=== PATIENT | female | born 1990 | race American Indian/Alaskan Native ===

== ENCOUNTER 2020-06-23 10:26 | Emergency (ER) | payer SELFPAY ==
--- NOTE | 2020-06-23 11:24 | XRay Report ---
Fingers 3 views INDICATION: Finger pain following injury. IMPRESSION: No acute fracture or subluxation of the thumb is identified. Mild swelling overlying the interphalangeal joint of the thumb dorsally. Signer Name: Wilfredo Harper MD Signed: 06/23/2020 11:20 AM Workstation Name: [id number]
[2020-06-23] MEDS ORDERED: DIPHtheria,PERTUSSIS(ACELL),TETANUS VACCINE/PF 0.5 ML VIAL IM ONE (12:29)
[2020-06-23] MEDS ORDERED: HYDROcodone/ACETAMINOPHEN 5-325 MG TAB PO ONE (12:29)
--- NOTE | 2020-06-23 12:46 | Emergency Department Report ---
ED Upper Extremity Inj HPI - General Chief Complaint: Extremity Injury, Upper Stated Complaint: RT THUMB SWELLING Time Seen by Provider: 06/23/20 11:47 Source: patient Mode of arrival: Ambulatory Limitations: No Limitations - History of Present Illness Initial Comments: Patient is a 29-year-old female presents emergency room with complaints of a right thumb injury that occurred just prior to arrival. She states that she accidentally slammed her right thumb into the car door. She states that she has associated right thumb pain and swelling. She denies any other injury. She denies any numbness or weakness. She is right-hand dominant. She denies ever injuring this thumb in the past. She is unsure of her last tetanus immunization. She denies any past medical history. No allergies to medications. Last menstrual cycle June 11. - Related Data Previous Rx's Medication Instructions Recorded Last Taken Type Naproxen [EC-Naprosyn] 500 mg PO BID PRN #14 tablet. 06/23/20 Unknown Rx Allergies Allergy/AdvReac Type Severity Reaction Status Date / Time seafood Allergy Anaphylaxis Uncoded 06/23/20 10:34 ED Review of Systems ROS: Stated complaint: RT THUMB SWELLING Other details as noted in HPI Comment: All other systems reviewed and negative ED Past Medical Hx - Past Medical History Previous Medical History?: No - Surgical History Past Surgical History?: No - Social History Smoking Status: Current Every Day Smoker Substance Use Type: Alcohol, Marijuana - Medications Home Medications: Home Medications Medication Instructions Recorded Confirmed Last Taken Type Naproxen [EC-Naprosyn] 500 mg PO BID PRN #14 tablet. 06/23/20 Unknown Rx ED Physical Exam - General Limitations: No Limitations General appearance: alert, in no apparent distress - Head Head exam: Present: atraumatic, normocephalic - Eye Eye exam: Present: normal appearance - ENT ENT exam: Present: mucous membranes moist - Extremities Exam Extremities exam: Present: other (ttp and mild edema present to the right mid thumb and distal thumb, there is a small 1 cm abrasion, no active bleeding, FROM of the right wrist, hand, and digits, no snuffbox ttp, no deformity, neurovascularly intact) - Neurological Exam Neurological exam: Present: alert, oriented X3 - Psychiatric Psychiatric exam: Present: normal affect, normal mood - Skin Skin exam: Present: warm, dry ED Course Vital Signs 06/23/20 06/23/20 06/23/20 10:29 12:38 13:20 Temperature 98.6 F 98.1 F Pulse Rate 93 H 73 Respiratory 18 18 16 Rate Blood Pressure 117/80 Blood Pressure 116/73 [Left] O2 Sat by Pulse 100 100 Oximetry ED Medical Decision Making - Radiology Data Radiology results: report reviewed Fingers 3 views INDICATION: Finger pain following injury. IMPRESSION: No acute fracture or subluxation of the thumb is identified. Mild swelling overlying the interphalangeal joint of the thumb dorsally. Signer Name: Wilfredo Harper MD Signed: 06/23/2020 11:20 AM Workstation Name: [id number] Transcribed By: BC Dictated By: Wilfredo Harper MD Electronically Authenticated By: Wilfredo Harper MD Signed Date/Time: 06/23/201119 DD/ 18 TD/TT: - Medical Decision Making Patient is a 29-year-old female presents emergency room with complaints of a right thumb injury that occurred just prior to arrival. She states that she accidentally slammed her right thumb into the car door. She states that she has associated right thumb pain and swelling. She denies any other injury. She denies any numbness or weakness. She is right-hand dominant. She denies ever injuring this thumb in the past. She is unsure of her last tetanus immunization. She denies any past medical history. No allergies to medications. Last menstrual cycle June 11. Vitals are normal. On exam: ttp and mild edema present to the right mid thumb and distal thumb, there is a small 1 cm abrasion, no active bleeding, FROM of the right wrist, hand, and digits, no snuffbox ttp, no deformity, neurovascularly intact. XR right thumb: IMPRESSION: No acute fracture or subluxation of the thumb is identified. Mild swelling overlying the interphalangeal joint of the thumb dorsally. Patient given Tdap while in the emergency department. Patient given pain medication whi le in the emergency department as she did not drive and symptoms improved. Wound care performed by nurse and patient placed in thumb splint by nurse, patient remained neurovascularly intact. Patient given prescription for naproxen. Advised patient Please take medication as prescribed as needed. Please keep area clean, dry, covered. Wash with antibacterial soap and water twice a day and pat dry. Use a Neosporin or triple antibiotic ointment. Follow-up with a primary care doctor. Follow-up with orthopedic doctor. Return to emergency room for any new or worsening symptoms. - Differential Diagnosis Strain, sprain, fracture, dislocation, abrasion, contusion Critical care attestation.: If time is entered above; I have spent that time in minutes in the direct care of this critically ill patient, excluding procedure time. ED Disposition Clinical Impression: Injury of right thumb Qualifiers: Encounter type: initial encounter Qualified Code(s): S69.91XA - Unspecified injury of right wrist, hand and finger(s), initial encounter Abrasion of right thumb Qualifiers: Encounter type: initial encounter Qualified Code(s): S60.311A - Abrasion of right thumb, initial encounter Disposition: TO HOME OR SELFCARE Is pt being admited?: No Does the pt Need Aspirin: No Condition: Stable Instructions: Diphtheria/Acellular Pertussis/Tetanus Booster Vaccine (Tdap) (Injection), Finger Sprain (ED), Abrasion (ED) Additional Instructions: Please take medication as prescribed as needed. Please keep area clean, dry, covered. Wash with antibacterial soap and water twice a day and pat dry. Use a Neosporin or triple antibiotic ointment. Follow-up with a primary care doctor. Follow-up with orthopedic doctor. Return to emergency room for any new or worsening symptoms. Prescriptions: Naproxen [EC-Naprosyn] 500 mg PO BID PRN #14 tablet.dr CAMARA Reason: pain Referrals: PRIMARY MD EML [Primary Care Provider] - 3-5 Days HEIDY LEVIN MD [Staff Physician] - 3-5 Days [facility] [Provider Group] - 3-5 Days KEV MACDONALD MD [Staff Physician] - 3-5 Days [facility] [Provider Group] - 3-5 Days Time of Disposition: 12:45 Print Language: UPPER SORBIAN
[2020-06-23 13:21] VITALS: BP 116/73
== END 2020-06-23 13:22 | disposition home or self-care (01) ==
LOC: ED 10:26
DX: S69.91XA Unspecified injury of right wrist, hand and finger(s), initial encounter (principal); S60.311A Abrasion of right thumb, initial encounter; F17.200 Nicotine dependence, unspecified, uncomplicated; F12.90 Cannabis use, unspecified, uncomplicated; Z79.899 Other long term (current) drug therapy; Z91.013 Allergy to seafood; X58.XXXA Exposure to other specified factors, initial encounter; Y93.89 Activity, other specified; Y92.89 Other specified places as the place of occurrence of the external cause; Y99.8 Other external cause status
CPT/HCPCS: 90471; 90715

== ENCOUNTER 2021-04-04 12:58 | Emergency (ER) | payer SELFPAY ==
[2021-04-04 14:08] VITALS: BP 146/99
[2021-04-04] MEDS ORDERED: ONDANSETRON 4 MG ODT TAB PO ONE (14:12)
[2021-04-04] MEDS ORDERED: DIPHENOXYLATE/ATROPINE TAB PO ONE (14:12)
[2021-04-04] MEDS ORDERED: IBUPROFEN 800 MG TAB PO ONE (14:13)
--- NOTE | 2021-04-04 14:19 | Emergency Department Report ---
ED N/V/D HPI - General Chief complaint: Abdominal Pain Stated complaint: ABDOMINAL PAIN PUI?: No Time Seen by Provider: 04/04/21 14:07 Source: patient Mode of arrival: Ambulatory Limitations: No Limitations - History of Present Illness Initial comments: cc: "I have alcohol poisoning. I drank too many shots last night." HPI: This is a 30 yo healthy female without significant past medical history who presents with vomiting, diarrhea after drinking numerous shots of [place]equ[place] last night. She denies discrete abdominal pain. She denies hematemsis or hematochezia. LMP last month. . MD complaint: nausea, vomiting, diarrhea -: This morning (2 PM this morning) Description of Vomiting: food contents Description of Diarrhea: water Associated Abdominal Pain: Yes Location: diffuse Radiation: none Severity: mild Quality: dull Consistency: now resolved Improves with: none Worsens with: none Associated Symptoms: denies other symptoms - Related Data Previous Rx's Medication Instructions Recorded Last Taken Type Naproxen [EC-Naprosyn] 500 mg PO BID PRN #14 tablet. 06/23/20 Unknown Rx Loperamide [Imodium] 2 tab PO QID 2 Days #16 capsule 04/04/21 Unknown Rx Promethazine [Phenergan] 25 mg PO Q6HR PRN #10 tab 04/04/21 Unknown Rx Allergies Allergy/AdvReac Type Severity Reaction Status Date / Time seafood Allergy Anaphylaxis Uncoded 06/23/20 10:34 ED Review of Systems ROS: Stated complaint: ABDOMINAL PAIN Other details as noted in HPI Comment: All other systems reviewed and negative Constitutional: denies: chills, fever Respiratory: denies: cough, shortness of breath Gastrointestinal: abdominal pain, nausea, vomiting, diarrhea ED Past Medical Hx - Past Medical History Previous Medical History?: No - Surgical History Past Surgical History?: No Additional Surgical History: denies - Social History Smoking Status: Current Every Day Smoker Substance Use Type: Alcohol - Medications Home Medications: Home Medications Medication Instructions Recorded Confirmed Last Taken Type Naproxen [EC-Naprosyn] 500 mg PO BID PRN #14 tablet. 06/23/20 Unknown Rx Loperamide [Imodium] 2 tab PO QID 2 Days #16 capsule 04/04/21 Unknown Rx Promethazine [Phenergan] 25 mg PO Q6HR PRN #10 tab 04/04/21 Unknown Rx ED Physical Exam - General Limitations: No Limitations General appearance: alert, in no apparent distress, other (pleasant NAD) - Head Head exam: Present: atraumatic, normocephalic - Eye Eye exam: Present: normal appearance - ENT ENT exam: Present: mucous membranes moist - Neck Neck exam: Present: normal inspection, full ROM - Respiratory Respiratory exam: Present: normal lung sounds bilaterally. Absent: respiratory distress, wheezes, rales, rhonchi, stridor - Cardiovascular Cardiovascular Exam: Present: regular rate, normal rhythm. Absent: systolic murmur, diastolic murmur, rubs, gallop - GI/Abdominal GI/Abdominal exam: Present: soft. Absent: distended, tenderness, guarding, rebound - Extremities Exam Extremities exam: Present: normal inspection - Neurological Exam Neurological exam: Present: alert, oriented X3 - Psychiatric Psychiatric exam: Present: normal affect, normal mood - Skin Skin exam: Present: warm, dry, intact, normal color. Absent: rash ED Course Vital Signs 04/04/21 04/04/21 04/04/21 13:20 14:02 14:06 Temperature 97.7 F 97.9 F Pulse Rate 75 98 H Respiratory 15 16 16 Rate Blood Pressure 146/93 Blood Pressure 146/99 [Right] O2 Sat by Pulse 100 100 100 Oximetry ED Medical Decision Making - Medical Decision Making Ms. charlie Bar is a 30-year-old healthy female presents with abdominal pain nausea vomiting diarrhea after imbibing alcohol last night. Differential diagnosis includes viral syndrome, food poisoning patient has been hydrating orally with Sprite and water encouraged continued supportive treatment. She understands return precautions. Critical care attestation.: If time is entered above; I have spent that time in minutes in the direct care of this critically ill patient, excluding procedure time. ED Disposition Clinical Impression: Dehydration, Alcohol ingestion Disposition: DC-01 TO HOME OR SELFCARE Is pt being admited?: No Does the pt Need Aspirin: No Condition: Stable Instructions: Abdominal Pain (ED), Rehydration, Adult Prescriptions: Loperamide [Imodium] 2 tab PO QID 2 Days #16 capsule Promethazine [Phenergan] 25 mg PO Q6HR PRN #10 tab PRN Reason: Nausea Referrals: HEIDY LEVIN MD [Staff Physician] - 3-5 Days
== END 2021-04-04 14:51 | disposition home or self-care (01) ==
LOC: ED 12:58
DX: T51.91XA Toxic effect of unspecified alcohol, accidental (unintentional), initial encounter (principal); E86.0 Dehydration; F17.200 Nicotine dependence, unspecified, uncomplicated; Y92.89 Other specified places as the place of occurrence of the external cause
CPT/HCPCS: 99282; Q0162

== ENCOUNTER 2022-02-13 08:58 | Emergency (ER) | payer SELFPAY ==
[2022-02-13 10:30] VITALS: BP 139/78
--- NOTE | 2022-02-13 11:38 | Emergency Department Report ---
ED Abdominal Pain HPI - General Chief Complaint: Abdominal Pain Stated Complaint: LOWER STOMACH/BACK PAIN PUI?: No Time Seen by Provider: 02/13/22 11:34 Source: patient Mode of arrival: Ambulatory Limitations: No Limitations - History of Present Illness Initial Comments: Patient comes to the emergency room complaining of hot and cold flashes and intermittent coughing since last Thursday. She is a smoker. She had a negative home COVID test. She denies fever taken by thermometer. She denies any chest pain. She denies shortness of breath. She is ambulatory, not ill nontoxic with normal vital signs on arrival to ER -: Gradual, days(s) Worsens With: nothing Associated Symptoms: denies other symptoms, chills. denies: nausea, vomiting, diarrhea, fever, constipation, dysuria, hematemesis, hematochezia, melena, hematuria, anorexia, syncope - Related Data Previous Rx's Medication Instructions Recorded Last Taken Type Naproxen [EC-Naprosyn] 500 mg PO BID PRN #14 tablet. 06/23/20 Unknown Rx Loperamide [Imodium] 2 tab PO QID 2 Days #16 capsule 04/04/21 Unknown Rx Promethazine [Phenergan] 25 mg PO Q6HR PRN #10 tab 04/04/21 Unknown Rx Allergies Allergy/AdvReac Type Severity Reaction Status Date / Time seafood Allergy Anaphylaxis Uncoded 06/23/20 10:34 ED Review of Systems ROS: Stated complaint: LOWER STOMACH/BACK PAIN Other details as noted in HPI Comment: All other systems reviewed and negative ED Past Medical Hx - Past Medical History Previous Medical History?: No - Surgical History Past Surgical History?: No Additional Surgical History: denies - Family History Family history: no significant - Social History Smoking Status: Current Every Day Smoker Substance Use Type: Alcohol - Medications Home Medications: Home Medications Medication Instructions Recorded Confirmed Last Taken Type Naproxen [EC-Naprosyn] 500 mg PO BID PRN #14 tablet. 06/23/20 Unknown Rx Loperamide [Imodium] 2 tab PO QID 2 Days #16 capsule 04/04/21 Unknown Rx Promethazine [Phenergan] 25 mg PO Q6HR PRN #10 tab 04/04/21 Unknown Rx ED Physical Exam - General Limitations: No Limitations General appearance: alert, in no apparent distress - Head Head exam: Present: atraumatic, normocephalic - Eye Eye exam: Present: normal appearance - ENT ENT exam: Present: mucous membranes moist - Neck Neck exam: Present: normal inspection - Respiratory Respiratory exam: Present: normal lung sounds bilaterally. Absent: respiratory distress - Cardiovascular Cardiovascular Exam: Present: regular rate, normal rhythm. Absent: systolic murmur, diastolic murmur, rubs, gallop - GI/Abdominal GI/Abdominal exam: Present: soft, normal bowel sounds - Extremities Exam Extremities exam: Present: normal inspection - Back Exam Back exam: Present: normal inspection - Neurological Exam Neurological exam: Present: alert, oriented X3 - Psychiatric Psychiatric exam: Present: normal affect, normal mood - Skin Skin exam: Present: warm, dry, intact, normal color. Absent: rash ED Course Vital Signs 02/13/22 10:27 Temperature 98.1 F Pulse Rate 77 Respiratory 16 Rate Blood Pressure 139/78 [Left] O2 Sat by Pulse 99 Oximetry ED Medical Decision Making - Lab Data Result diagrams: 02/13/22 11:39 - Medical Decision Making Labs 02/13/22 02/13/22 02/13/22 11:39 11:39 11:39 WBC 7.1 RBC 4.28 Hgb 13.0 Hct 40.0 MCV 94 MCH 31 MCHC 33 RDW 14.1 Plt Count 201 Lymph % (Auto) 18.1 [place] % (Auto) 6.5 Eos % (Auto) 0.5 Baso % (Auto) 0.2 Lymph # (Auto) 1.3 [place] # (Auto) 0.5 Eos # (Auto) 0.0 Baso # (Auto) 0.0 Seg Neutrophils % 74.7 H Seg Neutrophils # 5.3 Total Bilirubin 0.30 Direct Bilirubin < 0.2 Indirect Bilirubin 0.1 AST 22 ALT 18 Alkaline Phosphatase 66 Total Protein 8.1 Albumin 4.5 Albumin/Globulin Ratio 1.3 Lipase 30 HCG, Quant < 2 Urine Color Urine Turbidity Urine pH Ur Specific [place] Urine Protein Urine Glucose (UA) Urine Ketones Urine Blood Urine Nitrite Urine Bilirubin Urine Urobilinogen Ur Leukocyte Esterase 02/13/22 Unknown WBC RBC Hgb Hct MCV MCH MCHC RDW Plt Count Lymph % (Auto) [place] % (Auto) Eos % (Auto) Baso % (Auto) Lymph # (Auto) [place] # (Auto) Eos # (Auto) Baso # (Auto) Seg Neutrophils % Seg Neutrophils # Total Bilirubin Direct Bilirubin Indirect Bilirubin AST ALT Alkaline Phosphatase Total Protein Albumin Albumin/Globulin Ratio Lipase HCG, Quant Urine Color Yellow Urine Turbidity Clear Urine pH 7.0 Ur Specific [place] 1.020 Urine Protein <15 mg/dl Urine Glucose (UA) Negative Urine Ketones Negative Urine Blood Trace Urine Nitrite Negative Urine Bilirubin Negative Urine Urobilinogen 0.0 Ur Leukocyte Esterase Negative Vital Signs 02/13/22 10:27 Temperature 98.1 F Pulse Rate 77 Respiratory 16 Rate Blood Pressure 139/78 [Left] O2 Sat by Pulse 99 Oximetry Labs noted. UA noted. test noted. No indication for imaging. Patient's exam is within normal limits. Patient being discharged home with conservative management for URI. She v erbalizes understanding of plan of care including diet, activity, medications and follow-up. On discharge exam patient is ambulatory, nontoxic, and taking p.o. - Differential Diagnosis URI Critical care attestation.: If time is entered above; I have spent that time in minutes in the direct care of this critically ill patient, excluding procedure time. ED Disposition Clinical Impression: Viral illness Disposition: 01 HOME / SELF CARE / HOMELESS Is pt being admited?: No Does the pt Need Aspirin: No Condition: Stable Instructions: Viral Respiratory Infection, [id number], Abdominal Pain (ED) Additional Instructions: All labs are normal today. There is no indication for antibiotics. Continue [id number] sinus symptom relief. Stay well-hydrated. Motrin or Tylenol for pain or fever. Should your symptoms persist follow-up with primary care for a nonmedical emergency. I have given you referral below Referrals: HEIDY LEVIN MD [Staff Physician] - 3-5 Days Forms: Work/School Release Form(ED) Time of Disposition: 12:42
[2022-02-13 11:53] LABS: Basophils % (Auto) 0.2 % (0.0-1.8); Eosinophils % (Auto) 0.5 % (0.0-4.3); Lymphocytes # (Auto) 1.3 K/mm3 (1.2-5.4); Lymphocytes % (Auto) 18.1 % (13.4-35.0); Mean Corpuscular HGB Conc 33 % (30-34); Mean Corpuscular Volume 94 fl (79-97); Monocytes # (Auto) 0.5 K/mm3 (0.0-0.8); Monocytes % (Auto) 6.5 % (0.0-7.3); Platelet Count 201 K/mm3 (140-440); Red Blood Count 4.28 M/mm3 (3.65-5.03); Red Cell Distribution Width 14.1 % (13.2-15.2)
[2022-02-13 12:16] LABS: Alanine Aminotransferase 18 units/L (7-56); Albumin 4.5 g/dL (3.9-5)
[2022-02-13 12:20] LABS: Bilirubin,Direct < 0.2 mg/dL (0-0.2)
[2022-02-13 12:34] LABS: Bilirubin,Urine Negative (Negative); Color,Urine Yellow (Yellow)
[2022-02-13 12:35] LABS: Blood,Urine Trace (Negative)
[2022-02-13 12:36] LABS: Protein,Urine <15 mg/dL mg/dL (Negative)
[2022-02-13 13:45] LABS: RBC,Urine < 1.0 /HPF (0.0-6.0); Renal Epithelial Cells,Urine 1 /LPF; WBC,Urine < 1.0 /HPF (0.0-6.0)
== END 2022-02-13 13:16 | disposition home or self-care (01) ==
LOC: ED 08:58
DX: B34.9 Viral infection, unspecified (principal); Z91.013 Allergy to seafood; Z79.899 Other long term (current) drug therapy; F17.200 Nicotine dependence, unspecified, uncomplicated
CPT/HCPCS: 36415; 80076; 81001; 83690; 84702; 85025; 99283